=== PATIENT | male | born 2000 | race Caucasian/White ===

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

== ENCOUNTER 2022-01-17 08:52 | Emergency (ER) | payer MEDICAID, SELFPAY ==
[2022-01-17 08:53] VITALS: BP 104/57; PULSE 94; RESP 16; TEMP 36.5; O2SAT 97
[2022-01-17 09:29] LABS: Abs Immature Grans 0.05 10^3/uL (0.0-0.06); Absolute Basophil Count 0.03 10^3/uL (0.0-0.2); Absolute Eosinophil Count 0.08 10^3/uL (0.0-0.7); Absolute Lymphocyte Count 1.45 10^3/uL (1.2-3.4); Absolute Monocyte Count 0.53 10^3/uL (0.1-0.8); Absolute Neutrophil Count 4.02 10^3/uL (1.2-6.7); Basophils % 0.5; Eosinophils % 1.3; HGB 15.5 g/dL (13.5-17.5); Immature Grans % 0.8; Lymphocytes % 23.5; MCH 30.5 pg (27.0-33.0); MCHC 35.2 % (32.0-36.0); MCV 87 fL (80-95); MPV 10.8 fL (8.0-11.0); Monocytes % 8.6; Neutrophils % 65.3; Platelet Count 230 10^3/uL (130-400); RBC 5.08 10^6/uL (4.36-5.78); RDW 11.1 % (11.8-14.1); RDW-SD 35.1 fL; WBC 6.16 10^3/uL (4.4-10.8)
[2022-01-17] MEDS: levETIRAcetam 1,000 MG in Normal Saline 100 ML 400 MG IVPB (09:37)
[2022-01-17 09:47] LABS: ALT 53 U/L (16-63); AST 23 U/L (15-37); Alkaline Phosphatase 88 U/L (46-116); Anion Gap 6.8 mmol/L (3-11); BUN 14 mg/dL (7-18); Bilirubin, Total 0.3 mg/dL (0.2-1.0); CO2 30.2 mmol/L (21.0-32.0); CREATININE 0.9 mg/dL (0.70-1.30); Calcium 8.8 mg/dL (8.5-10.1); Chloride 102 mmol/L (98-107); Glucose 114 mg/dL (74-106); Potassium 3.4 mmol/L (3.5-5.1); Sodium 139 mmol/L (136-145); Total Protein 7.6 g/dL (6.4-8.2)
--- NOTE | 2022-01-17 10:43 | ED.GENADUL_ITS ---
Discharge Plan Disposition Patient Disposition: HOME Condition: Improving Discharge Details Clinical Impression: Poor compliance with medication, Seizure disorder Primary Care Provider: Loida Suarez ED Provider: Lio Suarez Home Meds and New Rx's Prescriptions: Continued cetirizine 10 mg capsule 10 mg PO DAILY Qty: 60 6RF Rx Instructions: use prn for allergy symptoms or daily to prevent allergy symptoms levetiracetam [Keppra] 1,000 mg tablet 1,000 mg PO BID Qty: 60 2RF lorazepam 1 mg tablet 1 mg PO PRN Qty: 10 1RF Rx Instructions: 2 bottles of 5 each please- home and school thanks minocycline 100 mg capsule 100 mg PO DAILY Qty: 60 3RF Rx Instructions: use for acne oxcarbazepine [Trileptal] 300 mg tablet 900 mg PO BID Qty: 540 1RF pyridoxine (vitamin B6) [Vitamin B-6] 25 mg tablet 25 mg PO DAILY Qty: 60 3RF Rx Instructions: 1 tab by mouth once daily trazodone 50 mg tablet See Rx Instructions .ROUTE .COMPLEX Qty: 60 0RF Rx Instructions: Give 1/2 to 1 tablet by mouth 30 minutes prior to bedtime for sleep Discharge Instructions Instructions: Recurrent Seizures in Adults (ED) Additional Instructions: It is very important that patient receives all of his daily medications to prevent seizure activity. Please ensure that patient has appropriate food intake and plenty of rest as this will also contribute to potential breakthrough seizures. If patient has any new or significant worsening of symptoms feel free to return the emergency department for reassessment. Referrals: Loida Suarez MD [Primary Care Provider] - 1 week Discharge Data Discharge Date/Time-TO BE ENTERED AT DEPARTURE: 01/17/22 13:00 Medical Decision Making Patient presenting to the emergency department via EMS for chief complaint of seizure. Patient is nonverbal with history of autistic disorder and seizure disorder. Patient's mother was brought in earlier due to hypoglycemia and while EMS was there fire department did witness a tonic-clonic seizure with a postictal period of approximately 5 minutes. Once patient was responsive he was refusing any medical interventions. Upon arrival to the emergency department patient is alert and awake, nonverbal but responding appropriately to commands and no focal neurological deficits are noted. Patient is living in a complex social situation with question of possibly not receiving medication at least this morning if not also last night per patient's sister. Suspect seizure secondary to medication compliance so we will plan on giving 1 g Keppra and checking patient's labs for any other secondary causes. At this time do not feel that CT imaging of the head is required and no obvious trauma is noted Review of labs show an unremarkable CBC, CMP only noting a slightly low potassium at 3.4 otherwise unremarkable CMP. Still pending urinalysis and did do a send out Keppra level testing for follow-up and primary care purposes Patient continually monitored and had no further seizure-like activity and per family is acting appropriate and at baseline. Family was able to establish appropriate living situation that I feel is main cause of poor medication compliance. Was unable to obtain urinalysis but doubt any urinary involvement and do not feel this is primary cause of breakthrough seizure. After discussion of diagnosis and plan of care family has no further needs, questions, or concerns and states clear understanding to return to the emergency department for any worsening symptoms. This documentation was generated using [employer] dictation system, please disregard any oddities of phrase or misspellings. HPI General Mode of arrival: EMS . Date/Time Provider Initiated Documentation: 01/17/22 08:52 . Limitations to Documentation: language barrier . Information obtained by: patient, family, EMS and RN notes reviewed . History of Present Illness 21 year old M presents to the emergency department with the chief complaint of Tonic-clonic seizure, Patient started experiencing this hour(s) (<1) and it has been now resolved. No relieving factors improve symptom(s), Patient did receive the following treatments prior to arrival, none Related Data Home Medications Medication Instructions Recorded Confirmed cetirizine 10 mg capsule 10 mg PO DAILY #60 caps 10/23/21 levetiracetam 1,000 mg tablet 1,000 mg PO BID #60 tabs 10/23/21 (Keppra) lorazepam 1 mg tablet 1 mg PO PRN agitation #10 tabs 10/23/21 minocycline 100 mg capsule 100 mg PO DAILY #60 caps 10/23/21 oxcarbazepine 300 mg tablet 900 mg PO BID #540 tabs 10/23/21 (Trileptal) pyridoxine (vitamin B6) 25 mg 25 mg PO DAILY #60 tabs 10/23/21 tablet (Vitamin B-6) trazodone 50 mg tablet See Rx Instructions .Route 01/03/22 .COMPLEX #60 tabs Previous Rx's Medication Instructions Recorded cetirizine 10 mg capsule 10 mg PO DAILY #60 caps 10/23/21 levetiracetam 1,000 mg tablet 1,000 mg PO BID #60 tabs 10/23/21 (Keppra) lorazepam 1 mg tablet 1 mg PO PRN agitation #10 tabs 10/23/21 minocycline 100 mg capsule 100 mg PO DAILY #60 caps 10/23/21 oxcarbazepine 300 mg tablet 900 mg PO BID #540 tabs 10/23/21 (Trileptal) pyridoxine (vitamin B6) 25 mg 25 mg PO DAILY #60 tabs 10/23/21 tablet (Vitamin B-6) trazodone 50 mg tablet See Rx Instructions .Route 01/03/22 .COMPLEX #60 tabs Allergies Allergy/AdvReac Type Severity Reaction Status Date / Time No Known Drug Allergies Allergy Verified 01/17/22 09:01 oak AdvReac runny nose Verified 01/17/22 09:01 General Stated Complaint: Seizure VASQUEZ: 3 Review of Systems Unobtainable due to mental condition Neurologic Neurologic: Reports as per HPI PFSH All Active Problems (Updated 01/17/22 @ 12:20 by Lio Suarez NP) Poor compliance with medication (Acute) Dental caries (Chronic) Due for care in [place]- unable to schedule secondary to lack of availability Insomnia (Chronic) Life-long: trial Trazodone QHS Compulsive behaviors (Chronic) Tears paper; now hoarding the torn papers Seizure disorder (Chronic) Last visit with peds Neurology at [facility] [place] [place] 06/2020; generalized tonic-clonic seizures- transferring care to neurology at [facility] Meds: Keppra 1000mg BID Trileptal 900mg BID Vit B6 25 mg Ativan 1 mg for abortive therapy Acne (Chronic) Will not use a topical medication or wash; Minocycline 100 mg daily Autistic disorder of childhood onset (Chronic 04/27/13) Non-verbal, with intellectual disability With IEP and at [place] [facility] Allergic rhinitis (Chronic 04/27/13) Surgical History Tonsillectomy and adenoidectomy Family History Mother Seasonal affective disorder homebound, lena. in winter Neuropathy Father Cancer 2019- espohageal [place] Brother Attention deficit hyperactivity disorder (ADHD) Autism spectrum disorder diagnosed 05/18 Social History Smoking/Tobacco Use Status: Never Second Hand Exposure: No Smoking risk assessment performed?: Yes Alcohol Intake: never Drug use: Never Substance use type: does not use Adopted: Yes Household members: family and other Details: Living with adoptive GM, 2 adoptive sibs (18 y, 14 y) Housing: house Communication Needs: Language Barriers Education Level: other Details: [facility] in [place] Do you need help understanding health information?: Always Pets and animals: Yes (3 birds, 3 dogs) Pets and animals: dog(s) and bird(s) Sexually active: No Current gender identity: male What is your relationship status?: never How often do you talk on the phone with friends or family?: never How often do you get together with friends or relatives?: never How often do you attend mormon or synagogue services?: decline to answer Do you belong to any clubs or organized social groups?: no Panel score (0-1 are the most socially isolated patients): 0 What type of physical activity do you participate in: irregular exercise and other Details: gets physical activity at school Special bianca needs: No Seatbelt use: always Helmet use: No Drive intox or ride w/intox owner operator 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 truck driver: No Working smoke detector in home: Yes Fire extinguisher in home: Yes Carbon monox detector in home: Yes Firearms in home: No Do you feel safe at home: Yes Exam Const General: cooperative, no acute distress and not ill appearing Orientation: alert and awake [facility] General nose exam: external nose normal Face and sinus: normal facial exam Mouth: oral mucosae normal, lip normal, tongue normal, oropharynx normal and moist mucous membranes Throat: posterior oropharynx normal Eyes General: appearance normal, both eyes and all related structures Alignment and Position: alignment normal Periorbital: periorbital findings normal Conjunctivae: conjunctivae normal Sclera: sclerae normal Pupils: PERRL Neck Neck: full ROM, no lymphadenopathy, no meningeal signs and nontender Resp Effort & Inspection: normal respiratory effort, able to speak in complete sentences and no respiratory distress Auscultation: clear to auscultation bilaterally Cardio Rate: regular rate Rhythm: regular rhythm Heart Sounds: S1 normal and S2 normal GI Palpation: soft and nontender Back/Spine/Pelvis Cervical Spine: normal cervical lordosis Skin General skin exam: no rashes or lesions noted Neuro General: patient alert, patient awake, tone normal, moves all extremities, no meningeal signs, no focal motor deficits, not confused and not obtunded Speech: anomia Motor: no pronator drift and no fasciculations Sensory Exam: no sensory deficits noted Course Vital Signs Vital signs: Vital Signs Temperature 36.5 C 01/17/22 08:53 Pulse 94 H 01/17/22 08:53 Respiratory Rate 16 01/17/22 08:53 Blood Pressure 104/57 L 01/17/22 08:53 Pulse Oximetry 97 01/17/22 08:53 Temperature 36.5 C 01/17/22 08:53 Temperature Source Temporal Artery Scan 01/17/22 08:53 Pulse 94 H 01/17/22 08:53 Respiratory Rate 16 01/17/22 08:53 Blood Pressure 104/57 L 01/17/22 08:53 Blood Pressure Position Sitting 01/17/22 08:53 Pulse Oximetry 97 01/17/22 08:53 Oxygen Delivery Method Room Air 01/17/22 08:53 Oxygen Flow Rate 0 01/17/22 08:53 Lab/Test Results Lab/Test Results: Laboratory Tests Range/Units 01/17/22 01/17/22 09:23 09:23 WBC (4.4-10.8) 10^3/uL 6.16 RBC (4.36-5.78) 10^6/uL 5.08 Hgb (13.5-17.5) g/dL 15.5 Hct (40.0-50.0) % 44.0 MCV (80-95) fL 87 MCH (27.0-33.0) pg 30.5 MCHC (32.0-36.0) % 35.2 RDW (11.8-14.1) % 11.1 L Plt Count (130-400) 10^3/uL 230 MPV (8.0-11.0) fL 10.8 Immature Gran % 0.8 Neutrophils % 65.3 Lymphocytes % 23.5 Monocytes % 8.6 Eosinophils % 1.3 Basophils % 0.5 Nucleated RBC % (0.0-0.3) % 0.0 Absolute Neutrophils (1.2-6.7) 10^3/uL 4.02 Absolute Lymphocytes (1.2-3.4) 10^3/uL 1.45 Absolute Monocytes (0.1-0.8) 10^3/uL 0.53 Absolute Eosinophils (0.0-0.7) 10^3/uL 0.08 Absolute Basophils (0.0-0.2) 10^3/uL 0.03 Sodium (136-145) mmol/L 139 Potassium (3.5-5.1) mmol/L 3.4 L Chloride (98-107) mmol/L 102 Carbon Dioxide (21.0-32.0) mmol/L 30.2 Anion Gap (3-11) mmol/L 6.8 BUN (7-18) mg/dL 14 Creatinine (0.70-1.30) mg/dL 0.9 Estimated GFR/1.73 m2 (mL/min/1.73m2) >= 60.00 Glucose (74-106) mg/dL 114 H Calcium (8.5-10.1) mg/dL 8.8 Magnesium (1.8-2.4) mg/dL 2.0 Total Bilirubin (0.2-1.0) mg/dL 0.3 AST (15-37) U/L 23 ALT (16-63) U/L 53 Alkaline Phosphatase (46-116) U/L 88 Total Protein (6.4-8.2) g/dL 7.6 Albumin (3.4-5.0) g/dL 4.0
--- NOTE | 2022-01-17 12:22 | NUR.NOTE ---
Nursing Note: Pt info faxed to PCP for follow up in a week for breakthrough seizures. Prachi, ED
[2022-01-19 11:21] LABS: Levetiracetam <2.0 mcg/mL
== END 2022-01-17 13:00 | disposition home or self-care (01) ==
LOC: ER 12:27
PROVIDERS: Emergency Provider Nurse Practitioner Family
DX: G40.909 Epilepsy, unspecified, not intractable, without status epilepticus (principal); E87.6 Hypokalemia; Z91.14 Patient's other noncompliance with medication regimen
CPT/HCPCS: 36415; 80053; 96365; 99284; 80177; 83735; 85025; 99285; J1953

== ENCOUNTER 2022-03-27 08:58 | Emergency (ER) | payer MEDICAID, SELFPAY ==
[2022-03-27 09:06] VITALS: BP 121/59; PULSE 100; RESP 20; TEMP 36.9; O2SAT 97
--- NOTE | 2022-03-27 09:24 | ED.GENADUL_ITS ---
Discharge Plan Disposition Patient Disposition: HOME Condition: Good Discharge Details Clinical Impression: Seizure, Contusion of face Primary Care Provider: Frantz Martin ED Provider: Chris Russo Home Meds and New Rx's Prescriptions: No Action cetirizine 10 mg capsule 10 mg PO DAILY Qty: 60 6RF Rx Instructions: use prn for allergy symptoms or daily to prevent allergy symptoms levetiracetam [Keppra] 1,000 mg tablet 1,000 mg PO BID Qty: 60 2RF lorazepam 1 mg tablet 1 mg PO PRN Qty: 10 1RF Rx Instructions: 2 bottles of 5 each please- home and school thanks oxcarbazepine [Trileptal] 300 mg tablet 900 mg PO BID Qty: 540 1RF pyridoxine (vitamin B6) [Vitamin B-6] 25 mg tablet 25 mg PO DAILY Qty: 60 3RF Rx Instructions: 1 tab by mouth once daily trazodone 50 mg tablet See Rx Instructions .ROUTE .COMPLEX Qty: 60 0RF Rx Instructions: Give 1/2 to 1 tablet by mouth 30 minutes prior to bedtime for sleep minocycline 50 mg tablet 50 mg PO DAILY Qty: 14 0RF Rx Instructions: Take 1 tab daily Discharge Instructions Instructions: Contusion in Adults (ED), Recurrent Seizures in Adults (ED) Additional Instructions: At this time Franco symptoms are reassuring, and shows no signs of significant intracranial etiology requiring emergent imaging. Please continue to monitor him very closely. If you notice any symptoms that are concerning to you, or that appear to be a significant change from his baseline, please do not hesitate to contact us or follow-up closely for reassessment. Make sure he is staying well-hydrated, drinking plenty of fluids, and taking his antiseizure medications. If you notice any worsening of your symptoms, or any new symptoms such as vomiting, diarrhea, fever, chills, shortness of breath, chest pain, numbness, weakness, or fainting , please return immediately to the emergency department for reevaluation. Please follow up with your primary care provider as soon as possible for reassessment and reevaluation. As always, it was a pleasure participating in your medical care today. Referrals: Frantz Martin, ELECTRO WINNING OPERATOR [Primary Care Provider] - Medical Decision Making This is a 21 year-old with autism, developmental delay, essentially non-verbal, OCD, obsessive eating, epilepsy, and insomnia who presents today for evaluation of seizure. Patient has seizures every few months. This morning the mother noticed that he was acting slightly more subdued than normal. While they are walking out to the car the patient had a seizure, fell forward and hit his head on the hill. Seizure lasted about a minute. It was consistent with his normal seizures. He has been taking his medications as directed. He was slightly postictal afterwards and then came around normal. Mother then brought the patient in for evaluation here in the emergency department for further assessment. Symptoms are completely resolved at the time they were in the car and transitioning here. Ironically the patient was getting to the car today to go have his follow-up appointment with his senior treasury consultant. Patient has no complaints at this time, but he is nonverbal. Mother who is at bedside is concerned for the fall to the face, but denies any other complaints. No other abnormal activity. No other modifying factors. Physical exam is very reassuring exam is very reassuring, there is a small an randy over the right brow, however no other signs of significant trauma. No hyphema, no evidence of neurologic deficit, or other significant trauma. Symptoms consistent with mild abrasion over the brow. Patient is certainly at his baseline for his regular seizures. Patient appears well, and in no acute distress. At this time with stable vital signs, no evidence of neurologic deficit, no other significant abnormalities clinically, and with an excellent clinical and neurologic assessment at this time, I had a long discussion with the patient's caregiver who is at bedside and through shared decision-making process we have decided to hold off for the time being on any labs or imaging. Caregiver/mother will go home and continue to watch the patient closely throughout the day. I have made myself available that if she has any questions or concerns that she should not hesitate to call me or return for reassessment. I have extensively reviewed the treatment plan and discharge instructions with the patient. I have addressed all patient concerns at this time. The patient was made aware of what symptoms to monitor for that would warrant a return to the emergency department. Discussed the plan with the patient, they demonstrate verbal understanding and agreement with our assessment and plan at this time. The documentation in this chart was dictated using [employer] dictation software. P willa excuse any dictation errors. HPI General Date/Time Provider Initiated Documentation: 03/27/22 09:01 . HPI Narrative: This is a 21 year-old with autism, developmental delay, essentially non-verbal, OCD, obsessive eating, epilepsy, and insomnia who presents today for evaluation of seizure. Patient has seizures every few months. This morning the mother noticed that he was acting slightly more subdued than normal. While they are walking out to the car the patient had a seizure, fell forward and hit his head on the hill. Seizure lasted about a minute. It was consistent with his normal seizures. He has been taking his medications as directed. He was slightly postictal afterwards and then came around normal. Mother then brought the patient in for evaluation here in the emergency department for further assessment. Symptoms are completely resolved at the time they were in the car and transitioning here. Ironically the patient was getting to the car today to go have his follow-up appointment with his senior treasury consultant. Patient has no complaints at this time, but he is nonverbal. Mother who is at bedside is concerned for the fall to the face, but denies any other complaints. No other abnormal activity. No other modifying factors. Related Data Home Medications Medication Instructions Recorded Confirmed cetirizine 10 mg capsule 10 mg PO DAILY #60 caps 02/25/22 02/26/22 levetiracetam 1,000 mg tablet 1,000 mg PO BID #60 tabs 02/25/22 03/27/22 (Keppra) lorazepam 1 mg tablet 1 mg PO PRN agitation #10 tabs 02/25/22 02/26/22 minocycline 50 mg tablet 50 mg PO DAILY #14 tabs 02/25/22 02/26/22 oxcarbazepine 300 mg tablet 900 mg PO BID #540 tabs 02/25/22 03/27/22 (Trileptal) pyridoxine (vitamin B6) 25 mg 25 mg PO DAILY #60 tabs 02/25/22 03/27/22 tablet (Vitamin B-6) trazodone 50 mg tablet See Rx Instructions .Route 02/25/22 03/27/22 .COMPLEX #60 tabs Previous Rx's Medication Instructions Recorded cetirizine 10 mg capsule 10 mg PO DAILY #60 caps 02/25/22 levetiracetam 1,000 mg tablet 1,000 mg PO BID #60 tabs 02/25/22 (Keppra) lorazepam 1 mg tablet 1 mg PO PRN agitation #10 tabs 02/25/22 minocycline 50 mg tablet 50 mg PO DAILY #14 tabs 02/25/22 oxcarbazepine 300 mg tablet 900 mg PO BID #540 tabs 02/25/22 (Trileptal) pyridoxine (vitamin B6) 25 mg 25 mg PO DAILY #60 tabs 02/25/22 tablet (Vitamin B-6) trazodone 50 mg tablet See Rx Instructions .Route 02/25/22 .COMPLEX #60 tabs Allergies Allergy/AdvReac Type Severity Reaction Status Date / Time No Known Drug Allergies Allergy Verified 02/26/22 13:51 oak AdvReac runny nose Verified 02/26/22 13:51 General Stated Complaint: Seizure VASQUEZ: 3 Review of Systems All systems reviewed & are unremarkable except as noted in HPI and below PFSH All Active Problems (Updated 03/27/22 @ 09:35 by Chris Russo DO) Seizure (Acute) Contusion of face (Acute) Epilepsy (Acute) Dental caries (Chronic) Due for care in [place]- unable to schedule secondary to lack of availability Insomnia (Chronic) Life-long: trial Trazodone QHS Compulsive behaviors (Chronic) Tears paper; now hoarding the torn papers Seizure disorder (Chronic) Last visit with peds Neurology at [facility] [place]; generalized tonic-clonic seizures- transferring care to neurology at [facility] Meds: Keppra 1000mg BID Trileptal 900mg BID Vit B6 25 mg Ativan 1 mg for abortive therapy Acne (Chronic) Will not use a topical medication or wash; Minocycline 100 mg daily Autistic disorder of childhood onset (Chronic 04/27/13) Non-verbal, with intellectual disability With IEP and at [place] [facility] Allergic rhinitis (Chronic 04/27/13) Surgical History Tonsillectomy and adenoidectomy Family History Mother Seasonal affective disorder homebound, lena. in winter Neuropathy Father Cancer 2019- espohageal [place] Brother Attention deficit hyperactivity disorder (ADHD) Autism spectrum disorder diagnosed 05/18 Social History (Reviewed 03/27/22 @ 09:26 by ELVER Cooley Smoking/Tobacco Use Status: Never Second Hand Exposure: No Smoking risk assessment performed?: Yes Alcohol Intake: never Drug use: Never Substance use type: does not use Adopted: Yes Household members: family and other Details: Living with adoptive GM, 2 adoptive sibs (18 y, 14 y) Housing: house Communication Needs: Language Barriers Education Level: other Details: [facility] in [place] Do you need help understanding health information?: Always Pets and animals: Yes (3 birds, 3 dogs) Pets and animals: dog(s) and bird(s) Sexually active: No Current gender identity: male What is your relationship status?: never How often do you talk on the phone with friends or family?: never How often do you get together with friends or relatives?: never How often do you attend yarsani or jain services?: decline to answer Do you belong to any clubs or organized social groups?: no Panel score (0-1 are the most socially isolated patients): 0 What type of physical activity do you participate in: irregular exercise and other Details: gets physical activity at school Special bianca needs: No Seatbelt use: always Helmet use: No Drive intox or ride w/intox drivers license examiner: No Working smoke detector in home: Yes Fire extinguisher in home: Yes Carbon monox detector in home: Yes Firearms in home: No Do you feel safe at home: Yes Exam Narrative Exam Narrative: 1.Const: Well-nourished, Well-developed, appearing stated age 2.Eyes: PERRL, no conjunctival injection, and symmetrical lids. 3.ENT: Atraumatic external nose and ears. Moist MM. Neck: Symmetric, trachea midline, No thyromegaly. Patient demonstrates intact dentition with no signs of tooth avulsion or fracture, no signs of jaw deformity, no evidence of a LeFort's fracture, with an intact palate, nose and orbital region. There is no evidence of a nasal septal hematoma. No proptosis. Jaw closes symmetrically. Airway is clear. There is no evidence of raccoon eyes, mosqueda sign, CSF rhinorrhea, mastoid tenderness, cranial crepitus, hemotympanum, exophthalmos, or hyphema. 4.CVS: +S1/S2, No murmurs or gallops. Peripheral pulses 2+ and equal in all extremities. Brisk capillary refill in all extremities. 5.RESP: Unlabored respiratory effort. Clear to auscultation bilaterally. No w heezes rales or rhonchi 6.GI: Soft, Nontender/Nondistended, No hepatosplenomegaly. No guarding or rebound. 7.MSK: Normocephalic/Atraumatic, Extremities w/o deformity or ttp No cyanosis or clubbing, Normal movement of all extremities 8.Skin: Warm, Dry. No rashes or lesions. Small abrasion over the right orbit 9.Neuro: pump rebuilder II-XII grossly intact. Sensation grossly intact, no focal neurologi c deficits. All 6 cardinal planes of vision are fully intact. No evidence of rotatory or vertical nystagmus. The patient demonstrated a normal [id number], good dexterity. There was no evidence of dysdiadochokinesia. Patient was able to ambulate without difficulty. There was no wide-based gait. Romberg testing was normal. [id number] testing was normal. Sensation was intact bilaterally as well as muscle strength bilaterally for all extremities. 10.Psych: At mental status baseline per family. Appropriate mood and affect Course Vital Signs Vital signs: Vital Signs Temperature 36.9 C 03/27/22 09:06 Pulse 100 H 03/27/22 09:06 Respiratory Rate 20 03/27/22 09:06 Blood Pressure 121/59 L 03/27/22 09:06 Pulse Oximetry 97 03/27/22 09:06 Temperature 36.9 C 03/27/22 09:06 Temperature Source Temporal Artery Scan 03/27/22 09:06 Pulse 100 H 03/27/22 09:06 Respiratory Rate 20 03/27/22 09:06 Respiratory Effort Non-Labored 03/27/22 09:12 Blood Pressure 121/59 L 03/27/22 09:06 Blood Pressure Position Sitting 03/27/22 09:06 Pulse Oximetry 97 03/27/22 09:06 Pain Level 0 03/27/22 09:06
[2022-03-27 09:40] VITALS: BP 126/80; PULSE 70; RESP 20; TEMP 37; O2SAT 99
== END 2022-03-27 10:22 | disposition home or self-care (01) ==
PROVIDERS: Emergency Provider Student in an Organized Health Care Education/Training Program; PCP Nurse Practitioner Pediatrics
DX: G40.909 Epilepsy, unspecified, not intractable, without status epilepticus (principal); S00.83XA Contusion of other part of head, initial encounter; W19.XXXA Unspecified fall, initial encounter; W22.8XXA Striking against or struck by other objects, initial encounter
CPT/HCPCS: 99281; 99282

== ENCOUNTER 2023-05-15 19:52 | Outpatient (REF) | payer MEDICARE, MEDICAID, SELFPAY ==
[2023-05-15 19:22] LABS: Abs Immature Grans 0.02 10^3/uL (0.0-0.06); Absolute Basophil Count 0.03 10^3/uL (0.0-0.2); Absolute Eosinophil Count 0.07 10^3/uL (0.0-0.7); Absolute Lymphocyte Count 2.19 10^3/uL (1.2-3.4); Absolute Monocyte Count 0.56 10^3/uL (0.1-0.8); Absolute Neutrophil Count 2.43 10^3/uL (1.2-6.7); Basophils % 0.6; Eosinophils % 1.3; HGB 15.6 g/dL (13.5-17.5); Immature Grans % 0.4; Lymphocytes % 41.3; MCH 29.5 pg (27.0-33.0); MCHC 33.9 % (32.0-36.0); MCV 87 fL (80-95); MPV 11.1 fL (8.0-11.0); Monocytes % 10.6; Neutrophils % 45.8; Platelet Count 284 10^3/uL (130-400); RBC 5.29 10^6/uL (4.36-5.78); RDW 11.2 % (11.8-14.1); RDW-SD 35.7 fL
[2023-05-15 19:49] LABS: Hemoglobin A1C 4.9 % (<5.7)
[2023-05-19 12:05] LABS: Oxcarbazepine Metabolite, S 26 mcg/mL (10 - 35)
[2023-05-19 13:00] LABS: Levetiracetam 19.8 mcg/mL
== END 2023-05-15 19:53 | disposition home or self-care (01) ==
LOC: NCHCN 19:52
PROVIDERS: Visit Provider Nurse Practitioner Family
DX: Z00.00 Encounter for general adult medical examination without abnormal findings (principal); G40.909 Epilepsy, unspecified, not intractable, without status epilepticus
CPT/HCPCS: 80183; 80177; 83036; 85025

== ENCOUNTER → 2023-11-27 11:15 | Outpatient (BNVA) | payer MEDICARE, MEDICAID, SELFPAY | PROVIDERS: Visit Provider Psychiatry & Neurology Neurology | DX: G40.909 Epilepsy, unspecified, not intractable, without status epilepticus (principal) | CPT/HCPCS: 99213 ==

== ENCOUNTER → 2024-07-22 09:52 | Outpatient (BNVA) | payer MEDICARE, MEDICAID, SELFPAY | PROVIDERS: Visit Provider Psychiatry & Neurology Neurology | DX: G40.909 Epilepsy, unspecified, not intractable, without status epilepticus (principal) | CPT/HCPCS: 99214 ==

== ENCOUNTER → 2025-03-31 14:00 | Outpatient (BNVA) | payer MEDICARE, MEDICAID, SELFPAY | PROVIDERS: PCP Family Medicine; Visit Provider Psychiatry & Neurology Neurology | DX: G40.909 Epilepsy, unspecified, not intractable, without status epilepticus (principal) | CPT/HCPCS: 99213 ==